=== PATIENT | female | born 1935 | race Caucasian/White ===

== ENCOUNTER 2018-06-12 12:23 | Emergency (ER) | payer OTHER, BC ==
[~2018-06-12] VITALS: Ht 154.9 cm; Wt 58.1 kg
[2018-06-12 13:32] VITALS: BP 180/85
[2018-06-12] MEDS ORDERED: ATENOLOL 50MG T50 M1 PO (13:32)
[2018-06-12] MEDS ORDERED: AMLODIPINE BESY10 MG PO (13:32)
[2018-06-12] MEDS ORDERED: NEURONTIN 300300 M1 PO (13:32)
[2018-06-12] MEDS ORDERED: MEDROLDOSEPACK PO (13:56)
[2018-06-12] MEDS ORDERED: NORCO 10-325 T1 EACH PO (13:56)
== END 2018-06-12 14:20 | disposition home or self-care (01) ==
LOC: ER 12:23
DX: M54.5 Low back pain (principal)

== ENCOUNTER 2019-11-12 02:37 | Inpatient (IN) | payer OTHER, BC ==
[~2019-11-12] VITALS: Ht 154.9 cm; Wt 51.1 kg
--- NOTE | ~2019-11-12 | EMS ---
[address] [address] EMS Patient Care Report Name: YANE EDMONDSON Room #: 170-6 ADM IN M.R.#: [id number] Admission: 11/12/19 Attend Phys: River Crowell MD Discharge: Date of : 35 Report #: [id number] THIS REPORT FOR: //name// Report Transmitted: 11/12/2019 03:02 EMS Care Summary [facility] MED-ACT Incident [id number] @ 11/12/2019 01:51 Incident Location [address] [place] [address] Patient YANE EDMONDSON Female, 84 Years 1935 Patient Address [address] [place] [address] Patient History Colon Cancer, Patient Allergies Iodine, Patient Medications Aspirin, Chief Complaint "THROWING UP BLOOD" Disposition Transported No Lights/Sherrill Dispatch Reason Hemorrhage/Laceration Transported To [facility] Narrative Upon arrival to the patient, the patient appeared to have no immediate life threats. The patient was noted to be CAOX4 with a GCS of 15. The patient was sitting upright on the toilet in her bathroom. The patient was with FD personnel and her son. The patient's home was noted to be clean and well kept. [address] [address] EMS Patient Care Report Name: YANE EDMONDSON Room #: 170-6 ADM IN Marilee#: [id number] Admission: 11/12/19 Attend Phys: River Crowell MD Discharge: Date of : 35 Report #: [id number] The patient was noted to have been vomiting with diarrhea for the past few hours. The patient's bowel movement and emesis was noted to be dark red (almost black). The patient was noted to go to [facility] for care. The patient's vitals had been obtained by the FD. The patient was noted to be hypotensive. The patient stated she was weak, and she couldn't walk. The patient's clothing was removed due to being soaked with emesis. The patient was placed in a hospital gown. The patient was slid from the toilet to the stair chair with a blanket under her. The patient was moved to the living room, lifted and placed on the cot, secured with seat belts, and moved to the ambulance. When the patient was moved with the stair chair, she was noted to become unresponsive due to her blood pressure. The patient regained consciousness a few seconds after being laid upon the cot. En route to the ER, vitals were obtained. The patient was placed on the repair mechanic. This revealed a reading of a sinus rhythm. An IV was established with a saline lock. The patient was given a fluid bolus of normal saline to assist in her blood pressure. The patient was also given four mg of Zofran for her nausea. Report was called to the ER via radio. The patient was transported with no problems and no other complaints. The patient was left in room ER six with report given to RN and MD. EMS returned to service. END OF REPORT. Initial Vitals @02:22P: 97,SpO2: 96, @PTAP: 98,BP: 95/67,GCS: 15,Temp: 97.4F,Glucose: 166,SpO2: 99, @02:19P: 93,R: 17,BP: 102/68,Pain: 0/10,GCS: 15,SpO2: 97,Revised Trauma: 12, @02:33P: 81,R: 17,BP: 94/48,Pain: 0/10,GCS: 15,SpO2: 94,Revised Trauma: 12, Assessments @02:20MENTAL:Person Oriented,Time Oriented,Place Oriented,Event Oriented,SKIN:Cold,Pale,HEENT:Eyes: Left Pupil: 4-mm,Eyes: Right Pupil: 4-mm,Head/Face: No Abnormalities,Neck/Airway: No Abnormalities,LUNG SOUNDS:General: Vomiting,General: Nausea,General: Diarrhea,ABDOMEN:General: Vomiting,General: Nausea,General: Diarrhea,PELVIS//GI:Incontinence,Rectal Bleeding,EXTREMITIES:Left Arm: No Abnormalities,Right Arm: No Abnormalities,Left Leg: No Abnormalities,Right Leg: No Abnormalities,PULSE:Radial: 2+ Normal,NEURO:No Abnormalities, Impression Gastrointestinal hemorrhage [address] [address] EMS Patient Care Report Name: YANE EDMONDSON Room #: 170-6 ADM IN M.R.#: [id number] Admission: 11/12/19 Attend Phys: River Crowell MD Discharge: Date of : 35 Report #: [id number] Procedures @02:31Ondansetron - 4 Milligrams (mg) - Intravenous (IV)Response: Improved@02:04ALS AssessmentResponse: UnchangedSucceeded@02:223-Lead ECGResponse: UnchangedSucceeded@02:08StairchairResponse: Unchanged@02:12StretcherResponse: Unchanged@02:23Normal Saline (.9% NaCl) 10cc (20 ga) Site: Antecubital-RightResponse: UnchangedSucceeded@02:24Saline - 500 Milliliters (ml) - Intravenous (IV)Response: Unchanged 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,BP: 95/67 M,PULSE: 98,RR: R,SPO2: 99 Ox,ETCO2: ,B,PAIN: ,GCS: 15, 01:50,Call Received 01:50,Psap Call 01:51,Dispatched 01:52,En Route 01:59,On Scene 02:01,At Patient 02:04,ALS Assessment,Response: UnchangedSucceeded, 02:08,Stairchair,Response: Unchanged 02:12,Stretcher,Response: Unchanged 02:19,BP: 102/68 M,PULSE: 93,RR: 17 R,SPO2: 97 Ox,ETCO2: ,BG: ,PAIN: 0,GCS: 15, 02:22,3-Lead ECG,Response: UnchangedSucceeded, 02:22,BP: / M,PULSE: 97,RR: R,SPO2: 96 Ox,ETCO2: ,BG: ,PAIN: ,GCS: , 02:23,Normal Saline (.9% NaCl) 10cc 20 ga Site: Antecubital-Right,Response: UnchangedSucceeded, 02:24,Saline - 500 Milliliters (ml) - Intravenous (IV),Response: Unchanged 02:26,Depart Scene 02:31,Ondansetron - 4 Milligrams (mg) - Intravenous (IV),Response: Improved 02:33,BP: 94/48 M,PULSE: 81,RR: 17 R,SPO2: 94 Ox,ETCO2: ,BG: ,PAIN: 0,GCS: 15, 02:35,At Destination 02:53,Call Closed Disclaimer v1.1 Copyright 2020 [employer] This EMS Care Summary contains data elements from the applicable legal record (which may be displayed differently). It is designed to provide pertinent information for the following purposes: continuity of care, clinical quality, and state data reporting. The complete legal record is available to ED staff and administrators of the receiving hospital in ES's Patient Tracker. All data is provided "as is."
[~2019-11-12 02:37] MED LIST: AMLODIPINE BESY10 MG PO; ATENOLOL 50MG T50 M1 PO; MEDROLDOSEPACK PO; NEURONTIN 300300 M1 PO; NORCO 10-325 T1 EACH PO
[2019-11-12 02:39] VITALS: BP 142/58
[2019-11-12 03:02] LABS: BASOPHILS 0.4 % (0.0-2.0); EOSINOPHILS 0.9 % (0.0-3.0); HEMATOCRIT 23.8 % (37.0-47.0); HEMOGLOBIN 8.1 gm/dL (12.0-15.0); LYMPHOCYTES 17.6 % (24.0-44.0); MCH 30.6 pg (26.0-34.0); MCHC 33.9 g/dL (28.0-37.0); MCV 90.4 fL (80.0-100.0); PLATELET COUNT 263 thou/uL (150-400); POLYS 77.1 % (36.0-66.0); RBC 2.63 mil/uL (4.20-5.00); RDW 13.5 % (10.5-14.5); WBC 14.3 thou/uL (4.0-11.0)
[2019-11-12 03:10] LABS: CALCIUM 7.6 mg/dL (8.5-10.1); CREATININE 0.7 mg/dL (0.6-1.0); POTASSIUM 3.2 mmol/L (3.5-5.1)
[2019-11-12 03:12] LABS: APTT 24.2 Seconds (24.5-32.8); INR 1.1
[2019-11-12 03:16] LABS: ALBUMIN 2.8 g/dL (3.4-5.0); TOTAL BILIRUBIN 0.2 mg/dL (0.2-1.0); TOTAL PROTEIN 5.4 g/dL (6.4-8.2)
[2019-11-12 07:06] VITALS: BP 127/62
[2019-11-12 09:57] LABS: HEMATOCRIT 22.2 % (37.0-47.0); HEMOGLOBIN 7.7 gm/dL (12.0-15.0)
[2019-11-12 12:10] LABS: HEMATOCRIT 21.1 % (37.0-47.0); HEMOGLOBIN 7.3 gm/dL (12.0-15.0)
[2019-11-12 13:19] VITALS: BP 129/66
[2019-11-12 14:32] VITALS: BP 140/63; BP 152/64
[2019-11-12 19:01] LABS: HEMATOCRIT 23.8 % (37.0-47.0); HEMOGLOBIN 8.2 gm/dL (12.0-15.0)
[2019-11-12 20:35] VITALS: BP 161/70
--- NOTE | 2019-11-12 20:36 | NUR ---
ASSUMMED PT CARE AT APPROXIMATELY 1330. PT A&O X4. ASSESSMENT CHARTED. FALL PRECAUTIONS IN PLACE. PT DENIES HAVING CHEST PAIN. PT DENIES HAVING SOB. PT DENIES HAVING ACUTE PAIN. TRANSFUSED 1 UNIT BLOOD. CONSENT SIGNED FOR EGD TOMORROW. VITAL SIGNS STABLE. EDUCATED PT AND PT'S SON ABOUT POC. PT AND PT'S FAMILY STATED UNDERSTANDING AND DENIED HAVING FURTHER QUESTIONS. PT COMFORTABLE. PT DENIES HAVING FURTHER CONCERNS.
[2019-11-13 04:21] LABS: ALBUMIN 2.6 g/dL (3.4-5.0); CALCIUM 7.8 mg/dL (8.5-10.1); CREATININE 0.6 mg/dL (0.6-1.0); MAGNESIUM 2.1 mg/dL (1.8-2.4); PHOSPHORUS 2.2 mg/dL (2.5-4.9); POTASSIUM 3.9 mmol/L (3.5-5.1); TOTAL BILIRUBIN 0.5 mg/dL (0.2-1.0)
[2019-11-13 04:25] LABS: ABSOLUTE NEUTROPHILS 3.5 thou/uL (1.4-8.2); BASOPHILS 0.6 % (0.0-2.0); EOSINOPHILS 2.1 % (0.0-3.0); HEMATOCRIT 20.6 % (37.0-47.0); HEMOGLOBIN 7.2 gm/dL (12.0-15.0); MCH 32.1 pg (26.0-34.0); MCHC 35.1 g/dL (28.0-37.0); MCV 91.5 fL (80.0-100.0); MONOCYTES 4.7 % (1.0-8.0); POLYS 54.6 % (36.0-66.0); RBC 2.25 mil/uL (4.20-5.00); WBC 6.5 thou/uL (4.0-11.0)
[2019-11-13 04:29] LABS: PLATELET COUNT 182 thou/uL (150-400)
[2019-11-13 04:30] VITALS: BP 130/60
[2019-11-13 04:46] LABS: URINE BILIRUBIN NEGATIVE (Negative); URINE BLOOD NEGATIVE (Negative); URINE CLARITY CLEAR; URINE COLOR YELLOW; URINE GLUCOSE-RANDOM* NEGATIVE (Negative); URINE KETONES NEGATIVE (Negative); URINE LEUKOCYTES-REFLEX NEGATIVE (Negative); URINE NITRITE-REFLEX NEGATIVE (Negative); URINE PROTEIN (DIPSTICK) NEGATIVE (Negative); URINE SPECIFIC GRAVITY 1.015 (1.005-1.035); URINE UROBILINOGEN 0.2 E.U./dl (0.2-1.0)
--- NOTE | 2019-11-13 06:08 | NUR ---
PATIENT IS NOT PROGRESSING IN HER CARE PLAN. VITAL SIGNS STABLE WITH PATIENT HAVING NO COMPLAINTS OF NAUSEA. PATIENT DID COMPLAIN OF PAIN DUE TO HEADACHE WHICH WAS TREATED APPROPRIATELY THROUGH MEDICATION. PATIENT HAS BEEN CONFUSED AND FREQUENTLY IMPULSIVE THROUGHOUT SHIFT. NURSING STAFF HAD TO SIT PATIENT AT NURSES STATION FOR LONG PERIODS OF TIME. NO OBVIOUS SIGNS OF BLEEDING NOTED. PATIENT HAS BEEN ABLE TO AMBULATE TO THE BEDSIDE COMMODE MULTIPLE TIMES WITH ASSISTANCE INCIDENT FREE. SHE APPEARS WEAK AND IS CONSIDERED A HIGH FALL RISK. NPO EXCEPT FOR MEDICATIONS WITH SIPS. EGD PLANNED FOR EARLY THIS MORNING.
[2019-11-13 08:20] VITALS: BP 135/65
[2019-11-13 12:10] LABS: HEMATOCRIT 27.3 % (37.0-47.0)
[2019-11-13 12:16] LABS: HEMOGLOBIN 9.5 gm/dL (12.0-15.0)
[2019-11-13 17:37] VITALS: BP 144/78
[2019-11-13 19:39] VITALS: BP 175/82
[2019-11-13 23:58] LABS: HEMATOCRIT 25.2 % (37.0-47.0); HEMOGLOBIN 8.6 gm/dL (12.0-15.0)
[2019-11-14 04:21] VITALS: BP 143/80
[2019-11-14 05:14] LABS: HEMATOCRIT 28.4 % (37.0-47.0); HEMOGLOBIN 9.8 gm/dL (12.0-15.0); MCH 32.2 pg (26.0-34.0); MCHC 34.7 g/dL (28.0-37.0); MCV 92.8 fL (80.0-100.0); RBC 3.06 mil/uL (4.20-5.00); RDW 13.8 % (10.5-14.5); WBC 9.5 thou/uL (4.0-11.0)
--- NOTE | 2019-11-14 05:16 | NUR ---
PATIENT IS ADVANCING IN HER CARE PLAN. VITAL SIGNS STABLE WITH PATIENT HAVING NO COMPLAINTS OF NAUSEA. PATIENT DID COMPLAIN OF CHRONIC PAIN IN BACK WHICH WAS TREATED APPROPRIATELY THROUGH MEDICATIONS. FULLY ORIENTED THROUGHOUT SHIFT, PATIENT HAS EXHIBITED NONE OF THE CONFUSION FROM LAST NIGHT AND HAS CALLED APPROPRIATELY FOR NEEDS. NO EVIDENCE OF BLEEDING. PATIENT DID AMBULATE THE HALLWAY WITH ASSISTANCE INCIDENT FREE. SHE APPEARS WEAK AND UNSTEADY. CONTINUE PLAN OF CARE.
--- NOTE | 2019-11-14 14:42 | NUR ---
Assess for high nutrition screening risk. Admit with hemetemesis, diarrhea. EGD indicated gastric ulcer and esophageal stricture likely related to excessive ASA use. Pt lives alone, states appetite has been down with about 10 lb wt loss but has started to eat better. Had questions regarding diet for gastric ulcers which were answered. pt hoping to go home soon. Has oral supplement already ordered. Low nutrition risk with appropriate nutrition interventions in place and pt appears to be eating better.
[2019-11-14 16:30] VITALS: BP 125/54
--- NOTE | 2019-11-14 17:13 | NUR ---
ASSESSMENT CHARTED -- MEDS PER APR - NO CO'S OF PAIN OR NASUEA. TOLL DIET AND FLUIDS, PT WITH BETTER APPITITE TODAY THAN REPORTED SHE HAD YESTERDAY. SEEN BY PHYS / OCC AND SPEECH THERAPY THIS SHIRT. ALSO SEEN BE REHAB MEDICINE. PATIENT BECAME VERY UPSET THIS AM WHEN ASKED ABOUT GOING TO REHAB - SHE BECAME QUITE DISTRAUGHT AND FLUSTERED ABOUT IT. STATING WHAT WOULD THE NEIGHBORS SAY - WHAT WOULD MY FAMILY SAY IOF I WENT TO A PLACE LIKE THAT - TRIED TO REASSURE HER IF THAT IS WHAT IS NEEDED IT WOULD BE THE BEST WE WNATED TO MAKE SURE SHE IS SAFE WHEN SHE GOES HOME - PT VERY UPSET - CALLED SONE - HEART RATE JUMPED INTO THE 130-140'S. SPOKE WITH DOCTOR AND HAD XANEX ORDERED - GIVEN A DOSE X 1 AND PATIENT MUCH CALMER NOW. DR LEYVA SPOKE TO SON AT LENGTH ON THE PHONE ABOUT PLAN WITH MOTHER. ORDER STATES THAT ONCE SEEN BY DR ZAVALA IF SHE FEELS SHE IS ABLE TO GO HOME SAFELY THEN SHE MAY AND THAT THERAPIES FEEL SHE IS SAFE. IF NOT SAFE THEN SHE WOULD NEED TO SIGN OUT AMA IF SHE INSITED ON GOING HOME TODAY. PATIENT HAS CALMED DOWN THIS AFTERNOON. WAITING FOR DR ZAVALA - HAS BEEN SEEN BY THERAPIES. SON REMAINS AT THE BEDSIDE. NO CO'S AT THE PRESENT TIME.
--- NOTE | 2019-11-14 17:56 | NUR ---
Met with patient who admits with GI bleed. Patient resides at home in ranch home, with laundry in basement. 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 She reports she has a walker at home in her bedroom if needed. PCP Dr Horne. Son at bedside and reports he will be avail to assist at pa. He is at her home often throughout the day. Discussed HH care and patient does not think this is necessary and does not need.
[2019-11-14 20:30] VITALS: BP 126/64
--- NOTE | 2019-11-15 04:13 | NUR ---
Assumed pt care at 1900. Pt is alert and oriented but forgetful. No sign of distress noted in pt. Denies pain. Fall precaution in place. Pt is stable. Pt waqs pretty drowsy and slept through the night. Assessment completed and documented. Vital signs stable. Scheduled meds administered to pt. No acute event overnight. Continue to monitor. No further needs at this time.
[2019-11-15 04:45] VITALS: BP 129/62
[2019-11-15 05:01] LABS: HEMATOCRIT 25.9 % (37.0-47.0); HEMOGLOBIN 8.7 gm/dL (12.0-15.0)
[2019-11-15 07:20] VITALS: BP 116/68
[2019-11-15] MEDS ORDERED: PROTONIX 20 MG20 M1 PO (10:26)
[2019-11-15 12:00] VITALS: BP 94/60
[2019-11-15 14:25] VITALS: BP 94/60
--- NOTE | 2019-11-15 14:57 | NUR ---
ASSESSMENT CHARTED - MEDS PER MAR - NO CO'S OF PAIN OR NAUSEA. PT AMBULATING WITH USE OF A WALKER WITH STDBY ASSIST. PT WITH AFO BRACE ON AND AMBULATES WITH A STEADIER GAIT WITH BRACE INSITU. ROSANNA DIET AND FLUIDS. PT SEEN BY DR ZAVALA THIS AFTERNOON AND OKAY'S TO GO HOME. INSTRUCTION RE HOME MEDS/ CARE AND FOLLOW UP GIVEN TO PATIENT AND SON, STATED UNDERSTANDING OF INSTRUCTION GIVEN. LEFT UNIT VIA WHEELCHAIR - HOME VIA PVT VEHICLE ACCOMAPINIED BY SON. IV AND MONITOR REMOVED PRIOR TO D/C. NO CO'S AT TIME OF D/C.
--- NOTE | 2019-11-15 17:07 | PATH ---
[facility] [address] [place] [address] PATHOLOGY RPT PROCEDURE Name: ANGELITA HILL Room #: 215-P DIS IN M.R.#: [id number] Admission: 11/12/19 Date of : 35 Discharge: 11/15/19 Report #: [id number] Path Case #: [id number] LCA Accession Number: [id number] . 01 Material submitted: . stomach - BX OF GASTRITIS . 01 Clinical history: . UGI BLEE, R/O H PYLORI . 02 Diagnosis: Gastric mucosa, gastritis to rule out H. pylori, endoscopic biopsy: - Helicobacter pylori induced mild to moderate active gastritis, - Negative for intestinal metaplasia or atrophy. - Few Helicobacter pylori organisms identified on the properly controlled immunohistochemical stain. (IUV:pit 11/15/2019) QTP 11/15/2019 1628 Local . 02 Electronically signed: . Linda Glaser MD, Pathologist NPI- [id number] . 01 Gross description: . The specimen is received in formalin, labeled "Angelita Hill, biopsy of gastritis to R/O H. pylori". Received is a segment of pale ahuja soft tissue measuring 0.4 cm in maximum dimensions. The specimen is submitted entirely in cassette A1. (CAA; 11/14/2019) QA/QA 11/14/2019 1604 Local . 02 Pathologist provided ICD-10: K29.60, B96.81 . 02 CPT . 725180, N99931 Specimen Comment: A courtesy copy of this report has been sent to [phone], [phone] Specimen Comment: [phone], Specimen Comment: Report sent to ,DR PAUL / DR DOCKERY Performed at: [address] [id number] MD Clif Del Castillo MD Phone: [phone] Performed at: [address] [id number] [address] [address] PATHOLOGY RPT PROCEDURE Name: ANGELITA HILL Room #: 215-P DIS IN M.R.#: [id number] Admission: 11/12/19 Date of : 35 Discharge: 11/15/19 Report #: [id number] Path Case #: [id number] MD Linda Glaser MD Phone: [phone]
--- NOTE | 2019-11-21 15:16 | HC ---
[facility] [place] [address] CONSULTATION Name: YANE EDMONDSON Room #: 215-P [facility] IN M.R.#: [id number] Admission: 11/12/19 Attend Phys: Daniela Tavarez MD Discharge: 11/15/19 Date of : 35 Report #: [id number] THIS REPORT FOR: cc: Louise Horne MD, Nora P. MD Smithson, David G. MD ~ CC: Daniela Horne DATE OF SERVICE: 11/14/2019 HISTORY OF PRESENT ILLNESS: The patient is an 84-year-old white female with a prior history of a polyneuropathy, followed by Dr. Velvet Maradiaga in Neurology. She has a premorbid left AFO that she utilizes for gait. She was independent and ambulatory without gait aids, active, working around her house, liking to do gardening, etc. She has a history of some chronic low back pain was taking aspirin for it. She got admitted with an upper GI bleed with hematemesis as well as bleeding per rectum. EGD was undertaken was thought that she had a bleed, likely secondary to aspirin. She had a syncopal episode x 1. The EGD showed prepyloric gastric ulcer and an esophageal stricture, which was dilated. This was performed on 11/13/2019. She is doing better and we are seeing her in rehabilitation medicine consultation. Concerned regarding her overall readiness for returning back to the home setting. PAST MEDICAL HISTORY: Includes colon CA, hypertension, chronic low back pain, prior history of neuropathy as noted above. MEDICATIONS: Please see the full medication listing. SOCIAL HISTORY: As noted above. She lives in a house by herself. Discussion with the son who lives in the area. He notes that he could move in with her and stay with her for a couple of weeks and is willing to do that. She was active premorbidly gardening, driving a car, did not utilize gait aids, although she does have a walker. REVIEW OF SYSTEMS: No current complaints of chest pain, shortness of breath or abdominal discomfort. PHYSICAL EXAMINATION: GENERAL: An 84-year-old white female in no obvious distress. VITAL SIGNS: Last recorded temperature is 98.6, pulse 100, respirations 18, blood pressure 142/76. The patient is alert. HEENT: Appeared to be benign. NEUROLOGIC: Cranial nerves are grossly intact. She was able to give me history regarding her medical history was able to follow basic commands without difficulty. Appeared appropriate with conversation was pleasant. Facies were [address] [address] CONSULTATION Name: YANE EDMONDSON Room #: 215-P [facility] IN M.R.#: [id number] Admission: 11/12/19 Attend Phys: Daniela Tavarez MD Discharge: 11/15/19 Date of : 35 Report #: [id number]. EXTREMITIES: She has functional range of motion of both upper extremities. Strength is grade 4 to 4+/5. DTRs are trace to 1. In her lower extremities, she has her left AFO in place. Functional range of motion, strength is probably a grade 4-/5. Tone appeared to be intact. She was able to sit to stand for me without gait aids. She ambulated in the room with some slight left lower extremity circumduction during swing phase. She appeared stable when up. ASSESSMENT: This is an 84-year-old white female with the following problem list: 1. Upper gastrointestinal bleed, thought likely secondary to aspirin, noted to have a pyloric gastric ulcer and esophageal stricture, which has been dilated. 2. Syncopal episode x 1 related to initial anemia. 3. Premorbid polyneuropathy, followed by Neurology, has a left AFO that she has used for years. 4. Prior history of colon cancer. 5. Supportive son who is willing to stay with her post-discharge. PLAN: Phone discussion with Dr. Cristina prior to evaluating the patient. I discussed with the son and would support his staying with her for at least a couple of weeks post-discharge. Physical therapy, occupational therapy and speech therapy are to complete their evaluations. Note that Dr. Weston is being contacted to see her as well. From my perspective, I would think that she should be able to return back home as long as her son is there tomorrow if cleared by Dr. Weston. We will need to see otherwise how she does in therapies, but she did quite well getting up with me to ambulate in the room as noted above. We will follow up with you again tomorrow. Again, would doubt that she would warrant an acute [address] [place] [address] inpatient rehabilitation stay. Agree with further checking things out prior to likely discharging home tomorrow with the son who indicated he would be able to stay directly with her post-discharge. <ELECTRONICALLY SIGNED> By: Miguelito Spaulding MD 11/21/19 1516 1223 2214 Miguelito Spaulding MD /[facility]
== END 2019-11-15 14:47 | disposition home or self-care (01) | DRG 377 ==
LOC: ER 02:37 → EROBS 03:42 → 2N 03:42
PROVIDERS: Emergency Medicine; Internal Medicine; Nurse Practitioner Family; ADMIT Internal Medicine; ATTEND Internal Medicine
DX: K25.4 Chronic or unspecified gastric ulcer with hemorrhage (principal); E43 Unspecified severe protein-calorie malnutrition; D62 Acute posthemorrhagic anemia; G93.40 Encephalopathy, unspecified; E88.09 Other disorders of plasma-protein metabolism, not elsewhere classified; E87.6 Hypokalemia; G62.9 Polyneuropathy, unspecified; G47.00 Insomnia, unspecified; R13.10 Dysphagia, unspecified; K44.9 Diaphragmatic hernia without obstruction or gangrene; G89.29 Other chronic pain; M54.5 Low back pain; I10 Essential (primary) hypertension; M19.90 Unspecified osteoarthritis, unspecified site; E83.51 Hypocalcemia; Z20.828 Contact with and (suspected) exposure to other viral communicable diseases; F41.1 Generalized anxiety disorder; K22.2 Esophageal obstruction; Z79.899 Other long term (current) drug therapy; Z88.7 Allergy status to serum and vaccine; Z90.49 Acquired absence of other specified parts of digestive tract; Z91.041 Radiographic dye allergy status; Z85.038 Personal history of other malignant neoplasm of large intestine; Z68.21 Body mass index [BMI] 21.0-21.9, adult
CPT/HCPCS: 10081; 62110; 62900